=== PATIENT | male | born 1950 | race Caucasian/White ===

== ENCOUNTER 2020-10-16 16:17 | Inpatient (IN) | payer MEDICARE, MEDICAID ==
[2020-10-17] MEDS ORDERED: Ondansetron ODT 4 MG TAB PO PRN (01:00)
[2020-10-17] MEDS ORDERED: Ondansetron PF 4 MG/2 ML Vial IVP PRN (01:00)
[2020-10-17] MEDS ORDERED: hydrALAZINE 20 MG/ML VIAL SLOW IVP PRN (01:00)
[2020-10-17] MEDS ORDERED: Lorazepam 2 MG/ML VIAL SLOW IVP SCH (02:15)
[2020-10-17] MEDS: VANCOMYCIN 1.25 GM/250 ML BAG 1.25 GM in Premix Bag 1 BAG IVPB SCH ×2 (02:32→13:57)
[2020-10-17 06:11] LABS: #Basophils 0.1 thou/uL (0.0-0.2); #Eosinphils 0.2 thou/uL (0.0-0.7); #Monocytes 0.6 thou/uL (0.11-0.59); #Neutrophils 4.7 thou/uL (1.40-6.50); %Basophils 0.8 % (0.0-1.0); %Eosinophils 2.3 % (0.0-10.0); %Lymphocytes 15.9 % (21.0-51.0); %Monocytes 8.8 % (0.0-10.0); %Neutrophils 72.2 % (42.0-75.0); Hemoglobin 11.9 g/dL (12.0-18.0); Mean Corpuscular HGB CONC 32.6 g/dL (32.0-36.0); Mean Corpuscular Hemoglobin 31.4 pg (27.0-31.0); Mean Corpuscular Volume 96.3 fL (78.0-98.0); Mean Platelet Volume 6.1 fL (7.4-10.4); Platelet Count 285 thou/uL (130-400); RBC Distribution Width 11.9 % (11.5-14.5); Red Blood Cell (RBC) Count 3.78 mill/uL (4.20-6.10); White Blood Cell (WBC) Count 6.5 thou/uL (4.8-10.8)
[2020-10-17 06:22] LABS: Anion Gap 14 mmol/L (10-20); BUN (Urea Nitrogen) 7 mg/dL (8.4-25.7); Calcium 8.6 mg/dL (7.8-10.44); Carbon Dioxide 22 mmol/L (23-31); Chloride 104 mmol/L (98-107); Glucose 100 mg/dL (80-115); Potassium 3.5 mmol/L (3.5-5.1); Sodium 136 mmol/L (136-145)
[2020-10-17 08:05] VITALS: BMI 26.5
[2020-10-17] MEDS ORDERED: MENTHOL TOP SCH (09:00)
[2020-10-17] MEDS ORDERED: Cefepime 2 GM in Sodium Chloride 0.9% 100 ML IVPB SCH (09:00)
[2020-10-17] MEDS: Famotidine 20 MG TAB PO SCH ×2 (10:21→20:42)
[2020-10-17] MEDS: Senokot 8.6 MG TAB PO SCH ×2 (10:21→20:42)
[2020-10-17] MEDS: Acetaminophen 500 MG TAB PO PRN ×2 (10:22→18:17)
[2020-10-17] MEDS: DULoxetine 60 MG CAP PO SCH ×2 (10:23→20:41)
[2020-10-17] MEDS: Losartan 25 MG TAB PO SCH (10:23)
[2020-10-17] MEDS: Oxybutynin 5 MG TAB PO SCH ×2 (10:23→20:43)
[2020-10-17] MEDS: Lorazepam 0.5 MG TAB PO SCH ×3 (10:24→20:44)
[2020-10-17] MEDS: Gabapentin 400 MG CAP PO SCH ×3 (10:24→20:42)
[2020-10-17] MEDS: Multivitamin W/ Minerals 1 TAB PO SCH (10:25)
[2020-10-17] MEDS: Rivastigmine 1.5 MG CAP PO SCH ×2 (10:25→18:17)
[2020-10-17] MEDS: Meloxicam 7.5 MG TAB PO SCH (10:25)
[2020-10-17] MEDS: cefTRIAXone\\ROCEPHIN 1 GM in Sodium Chloride 0.9% 100 ML IVPB SCH (12:52)
[2020-10-17] MEDS ORDERED: Aspirin 81 mg Enteric Coated Tablet ONE (19:13)
[2020-10-17] MEDS ORDERED: Aspirin Chewable 81 MG TAB PO SCH (19:15)
[2020-10-17 19:22] LABS: SARS-CoV-2 PCR by NAA Not Detected (NotDetected)
[2020-10-17 19:25] LABS: Troponin I Less than 0.010 ng/mL (< 0.028)
[2020-10-17] MEDS ORDERED: traZODone HCl 50 MG TAB PO SCH (21:00)
[2020-10-17] MEDS ORDERED: traMADol HCl 50 MG TAB PO SCH (21:00)
[2020-10-18 00:29] LABS: Troponin I Less than 0.010 ng/mL (< 0.028)
[2020-10-18] MEDS: VANCOMYCIN 1.25 GM/250 ML BAG 1.25 GM in Premix Bag 1 BAG IVPB SCH ×2 (00:50→13:47)
[2020-10-18 06:22] LABS: Troponin I Less than 0.010 ng/mL (< 0.028)
[2020-10-18] MEDS: Acetaminophen 500 MG TAB PO PRN (08:11)
[2020-10-18] MEDS: Meloxicam 7.5 MG TAB PO SCH (08:13)
[2020-10-18] MEDS: Gabapentin 400 MG CAP PO SCH ×2 (08:13→14:45)
[2020-10-18] MEDS: Losartan 25 MG TAB PO SCH (08:14)
[2020-10-18] MEDS: Oxybutynin 5 MG TAB PO SCH (08:15)
[2020-10-18] MEDS: Famotidine 20 MG TAB PO SCH (08:15)
[2020-10-18] MEDS: Multivitamin W/ Minerals 1 TAB PO SCH (08:15)
[2020-10-18] MEDS: Senokot 8.6 MG TAB PO SCH (08:15)
[2020-10-18] MEDS: DULoxetine 60 MG CAP PO SCH (08:15)
[2020-10-18] MEDS: Lorazepam 0.5 MG TAB PO SCH ×2 (08:15→14:45)
[2020-10-18] MEDS: Rivastigmine 1.5 MG CAP PO SCH (08:16)
[2020-10-18] MEDS: cefTRIAXone\\ROCEPHIN 1 GM in Sodium Chloride 0.9% 100 ML IVPB SCH (11:44)
[2020-10-18 12:00] VITALS: BP 155/85; TEMP 98
[2020-10-18 12:48] LABS: Vancomycin, Trough 11.8 ug/mL
== END 2020-10-18 15:30 | disposition home or self-care (01) | DRG 602 ==
LOC: EDSEX 23:07 → T4-B 23:07
PROVIDERS: ADMIT Internal Medicine; ATTEND Internal Medicine
DX: L03.113 Cellulitis of right upper limb (principal); G93.41 Metabolic encephalopathy; K21.9 Gastro-esophageal reflux disease without esophagitis; I10 Essential (primary) hypertension; G47.33 Obstructive sleep apnea (adult) (pediatric); M19.90 Unspecified osteoarthritis, unspecified site; G30.9 Alzheimer's disease, unspecified; F02.80 Dementia in other diseases classified elsewhere, unspecified severity, without behavioral disturbance, psychotic disturbance, mood disturbance, and anxiety; F41.9 Anxiety disorder, unspecified; F32.9 Major depressive disorder, single episode, unspecified; D64.9 Anemia, unspecified; S43.006A Unspecified dislocation of unspecified shoulder joint, initial encounter
CPT/HCPCS: 36415; 80048; 80202; 84484; 85025; 93005; 93010; J0692; J0696; J2060; J2405; J3370; J3490; U0003; U0005